=== PATIENT | female | born 1980 | race African-American/Black ===

== ENCOUNTER 2019-11-26 01:48 | Emergency (ER) | payer BC ==
[~2019-11-26] VITALS: Ht 167.6 cm; Wt 132.4 kg
[2019-11-26 02:03] VITALS: Ht 167.6 cm; Wt 132.4 kg
[2019-11-26 02:29] VITALS: BP 153/93
== END 2019-11-26 02:29 | disposition home or self-care (01) ==
LOC: ED 01:48
DX: J11.1 Influenza due to unidentified influenza virus with other respiratory manifestations (principal); E11.9 Type 2 diabetes mellitus without complications